=== PATIENT | female | born 1980 | race African-American/Black ===

== ENCOUNTER 2017-10-26 14:05 | Emergency (ER) | payer MEDICAID ==
--- NOTE | 2017-10-26 14:25 | ER Document Report ---
ED Medical Screen (RME) - General Chief Complaint: OB Problem (>20wk) Stated Complaint: ABDOMINAL CRAMPING Time Seen by Provider: 10/26/17 14:20 Notes: The patient is a 37-year-old female, past medical history anemia, presents with diffuse lower abdominal cramping. She saw her OB in [place] yesterday and was told she had a demise 2 weeks ago. She is supposed to be 11 weeks by last menstrual period. Her OB told her to let it pass by itself for 2 weeks and then they would have another appointment to discuss if she needed a D&C. Patient wants the D&C now. PE: NAD. No abdominal tenderness. I have greeted and performed a rapid initial assessment of this patient. A comprehensive ED assessment and evaluation of the patient, analysis of test results and completion of the medical decision making process will be conducted by additional ED providers. - Related Data Allergies/Adverse Reactions: latex Allergy (Verified 10/26/17 14:19) Home Medications: Current Home Medications No Home Medications 10/26/17 [History] Past Medical History - Social History Frequency of alcohol use: None Drug Abuse: None Renal/ Medical History: Denies: Hx Peritoneal Dialysis
--- NOTE | 2017-10-26 15:03 | ER Document Report ---
ED General - General Chief Complaint: OB Problem (>20wk) Stated Complaint: ABDOMINAL CRAMPING Time Seen by Provider: 10/26/17 14:20 Notes: 37-year-old female 11 weeks presents with desire for dilation and curettage. A few days ago she saw her LEASING SALES CONSULTANT in [place] was told that she had a demise about a week prior and was going to let it pass on its own. Has an appointment in 1 week to follow-up then would be scheduled for D&C. She does not want to wait because she works with [id number] and is afraid if she miscarried at home she will be able to go in. She has chronic anemia with a baseline hemoglobin of 8 but has no current vaginal bleeding and only minor abdominal cramping.. - Related Data Allergies/Adverse Reactions: latex Allergy (Verified 10/26/17 14:19) Home Medications: Current Home Medications No Home Medications 10/26/17 [History] Past Medical History - Social History Smoking Status: Never Smoker Frequency of alcohol use: None Drug Abuse: None Family History: None Patient has suicidal ideation: No Patient has homicidal ideation: No Renal/ Medical History: Denies: Hx Peritoneal Dialysis Review of Systems - Review of Systems Notes: REVIEW OF SYSTEMS GEN: Denies fever, chills, weight loss ENT: Denies sore throat, nasal discharge, ear pain EYES: Denies blurry vision, eye pain, discharge CV: Denies chest pain, palpitations, edema RESP: Denies cough, shortness of breath, wheezing GI: Denies abdominal pain, nausea, vomiting, diarrhea MSK: Denies joint pain/swelling, edema, SKIN: Denies rash, skin lesions LYMPH: Denies swollen glands/lymph nodes NEURO: Denies headache, focal weakness or numbness, dizziness PSYCH: Denies depression, suicidal or homicidal ideation PHYSICAL EXAMINATION General: No acute distress, well-nourished Head: Atraumatic, normocephalic ENT: Mouth normal, oropharynx moist, no exudates or tonsillar enlargement Eyes: Conjunctiva normal, pupils equal, lids normal Neck: No JVD, supple, no guarding CVS: Normal rate, regular rhythm, no murmurs Resp: No resp distress, equal and normal breath sounds bilaterally GI: Nondistended, soft, no tenderness to palpation, no rebound or guarding Ext: No deformities, no edema, normal range of motion in upper and lower ext Back: No CVA or midline TTP Skin: No rash, warm Lymphatic: No lymphadeopathy noted Neuro: Awake, alert. Face symmetric. GCS 15. Physical Exam - Vital signs Vitals: Temp Pulse Resp BP Pulse Ox 98.0 F 85 14 123/72 100 10/26/17 16:11 10/26/17 16:11 10/26/17 16:11 10/26/17 16:11 10/26/17 16:11 Course - Re-evaluation Re-evalutation: 10/26/17 15:17 Patient presents with missed . Hemoglobin is higher than baseline. Patient is nontender. Ultrasound would not exchange engineer as we already know she has a demise. I spoke with Dr. Monaco from a [employer] who does not see an urgent need for dilation curettage, and thinks that a medication induced at home given the patient's anemia is probably risky. I will asked the patient follow up with her LEASING SALES CONSULTANT next week to schedule the procedure. She does not have any clear emergent medical condition today and is stable for discharge home. I have discussed with the patient there likely diagnosis, aftercare plan, follow -up plans and my usual and customary return precautions. They verbalized understanding of this. - Vital Signs Vital signs: Temp Pulse Resp BP Pulse Ox 98.0 F 85 14 123/72 100 10/26/17 16:11 10/26/17 16:11 10/26/17 16:11 10/26/17 16:11 10/26/17 16:11 - Laboratory Result Diagrams: 10/26/17 14:26 10/26/17 14:26 Laboratory results interpreted by me: 10/26/17 10/26/17 14:26 14:26 Hgb 10.2 L Hct 32.3 L MCV 78 L MCH 24.5 L MCHC 31.6 L RDW 24.9 H Glucose 68 L Discharge - Discharge Clinical Impression: , missed Condition: Good Disposition: HOME, SELF-CARE Instructions: Miscarriage Impending ([facility]) Additional Instructions: I spoke with the LEASING SALES CONSULTANT on-call here at [facility] and she did not recommend medical miscarriage because you have anemia already, if you bleed at home he will likely get worse. The safest and best plan is for you to call your LEASING SALES CONSULTANT tomorrow and schedule the procedure to be done next week. Please return to the ER if you have significant vaginal bleeding dizziness or faints. Forms: Parent Work Note
[2017-10-26 15:07] LABS: ABSOLUTE EOSINOPHILS # (AUTO) 0.1 10^3/uL (0.0-0.6); ABSOLUTE LYMPHOCYTES (AUTO) 1.3 10^3/uL (0.5-4.7); ABSOLUTE MONOCYTES (AUTO) 0.5 10^3/uL (0.1-1.4); BASOPHILS % (AUTO) 0.8 % (0-2); EOSINOPHILS % (AUTO) 2.8 % (0-6); HEMATOCRIT 32.3 % (36.0-47.0); HEMOGLOBIN 10.2 g/dL (12.0-15.5); HGB HCT DIFFERENCE -1.7; LYMPHOCYTES % (AUTO) 26.5 % (13-45); MEAN CORPUSCULAR HEMOGLOBIN 24.5 pg (27.0-33.4); MEAN CORPUSCULAR HGB CONC 31.6 g/dL (32.0-36.0); MEAN CORPUSCULAR VOLUME 78 fl (80-97); MONOCYTES % (AUTO) 10.9 % (3-13); RED BLOOD COUNT 4.15 10^6/uL (3.72-5.28); RED CELL DISTRIBUTION WIDTH 24.9 % (11.5-14.0)
--- NOTE | 2017-10-26 15:20 | RADIOLOGY REPORT (SQ) ---
EXAM DESCRIPTION: U/S 1TRIMESTER/1GEST W/DOPPLER COMPLETED DATE/TIME: 10/26/2017 2:19 pm REASON FOR STUDY: possible demise COMPARISON: None. TECHNIQUE: Transabdominal static and realtime grayscale images acquired of the pelvis. Additional se lected spectral and color Doppler images recorded. All images stored on PACs. bHCG: Not applicable. LIMITATIONS: None. FINDINGS: FETUS: Single intrauterine . EGA: 8 week 6 day. STEPHANI: 06/01/2018. FHR: No cardiac activity detected. SUBCHORIONIC BLEED: No. SIZE OF BLEED: Not applicable. UTERUS: No masses. No anomalies. RIGHT ADNEXA: Ovary not identified. No adnexal free fluid. No adnexal masses. LEFT ADNEXA: Ovary not identified. No adnexal free fluid. No adnexal masses. FREE FLUID: None. OTHER: No other significant finding. IMPRESSION: INTRAUTERINE . NO CARDIAC ACTIVITY DETECTED CONSISTENT WITH DEMISE. EGA 8 WEEK 6 DAY. Trimester of : First - 0 to 13 weeks. TECHNICAL DOCUMENTATION: JOB ID: [id number] tabulate- All Rights Reserved
[2017-10-26 15:22] LABS: ALANINE AMINOTRANSFERASE 30 U/L (9-52); ALBUMIN 4.2 g/dL (3.5-5.0); ALKALINE PHOSPHATASE 46 U/L (38-126); ANION GAP 12 (5-19); ASPARTATE AMINO TRANSFERASE 23 U/L (14-36); BILIRUBIN,DIRECT 0.2 mg/dL (0.0-0.4); BILIRUBIN,TOTAL 0.6 mg/dL (0.2-1.3); BLOOD UREA NITROGEN 9 mg/dL (7-20); CALCIUM 9.4 mg/dL (8.4-10.2); CARBON DIOXIDE 23 mmol/L (22-30); CHLORIDE 104 mmol/L (98-107); CREATININE RESULT 0.62 mg/dL (0.52-1.25); GLUCOSE 68 mg/dL (75-110); POTASSIUM 4.5 mmol/L (3.6-5.0); SODIUM 139.4 mmol/L (137-145); TOTAL PROTEIN 7.4 g/dL (6.3-8.2)
[2017-10-26 15:28] LABS: MICROCYTOSIS SLIGHT; OVALOCYTES 1+; POIKILOCYTOSIS 1+; TARGET CELLS 1+
[2017-10-26 16:13] VITALS: BP 123/72
== END 2017-10-26 15:55 | disposition home or self-care (01) ==
LOC: ER 14:05
DX: O02.1 Missed abortion (principal); D64.9 Anemia, unspecified
CPT/HCPCS: 36415; 76801; 80053; 85025; 93976; 99284